=== PATIENT | male | born 1945 | race Caucasian/White ===

== ENCOUNTER 2016-10-11 23:15 | Emergency (ER) | payer MEDICARE, BC ==
[~2016-10-11] VITALS: Ht 175.3 cm; Wt 98.6 kg
[~2016-10-11 23:15] MED LIST: LIORESAL 1010 MG/TAB PO; NORCO 325 MG-51 TAB PO
[2016-10-11 23:23] VITALS: BP 180/95; TEMP 98.6
[2016-10-11] MEDS ORDERED: PRILOSEC 20MG20 MG PO (23:28)
[2016-10-11] MEDS ORDERED: PAXIL 20MG20 MG PO (23:29)
[2016-10-12 00:34] VITALS: PULSE 80
== END 2016-10-12 00:36 | disposition home or self-care (01) ==
LOC: COL.ER 23:15
DX: T17.200A Unspecified foreign body in pharynx causing asphyxiation, initial encounter (principal); K21.9 Gastro-esophageal reflux disease without esophagitis; F32.9 Major depressive disorder, single episode, unspecified

== ENCOUNTER 2017-04-26 09:30 | Outpatient (RCR) | payer MEDICARE, BC ==
[~2017-04-26 09:30] MED LIST changes: +PAXIL 20MG20 MG PO; +PRILOSEC 20MG20 MG PO
== END 2017-05-09 08:47 | disposition home or self-care (01) ==
LOC: WSPT 09:30
DX: M19.012 Primary osteoarthritis, left shoulder (principal)
CPT/HCPCS: G8978-GP; G8979-GP; G8980-GP

== ENCOUNTER 2021-10-14 14:15 | Outpatient (RCR) | payer MEDICARE, BC | END 2021-10-20 | disposition home or self-care (01) | LOC: WSOT | DX: G56.03 Carpal tunnel syndrome, bilateral upper limbs (principal); G56.23 Lesion of ulnar nerve, bilateral upper limbs ==

== ENCOUNTER → 2021-10-26 | Outpatient (CLI) | payer MEDICARE, BC | LOC: COL.RAD 13:55 | DX: M47.812 Spondylosis without myelopathy or radiculopathy, cervical region (principal); M48.02 Spinal stenosis, cervical region ==

== ENCOUNTER 2021-12-16 10:30 | Outpatient (RCR) | payer MEDICARE, BC | END 2021-12-20 | disposition home or self-care (01) | LOC: WSPT | DX: M48.02 Spinal stenosis, cervical region (principal) ==